=== PATIENT | female | born 1965 | race Caucasian/White ===

== ENCOUNTER 2018-03-30 08:45 | Emergency (ER) | payer BC, OTHER ==
[~2018-03-30] VITALS: Ht 167.6 cm; Wt 92.2 kg
[2018-03-30 08:45] VITALS: BP 167/77; PULSE 76; RESP 26; TEMP 97.5; O2SAT 97
[~2018-03-30 08:45] MED LIST: Z.0.NO CURRENT MEDS
[2018-03-30] MEDS ORDERED: AMBI10TA PO (09:06)
[2018-03-30] MEDS ORDERED: LOVA40TA PO (09:06)
[2018-03-30] MEDS ORDERED: METF500T PO (09:06)
[2018-03-30] MEDS ORDERED: MIRT30TA PO (09:06)
--- NOTE | 2018-03-30 09:06 | PD ---
HPI Chief Complaint: Respiratory Symptoms Time Seen by Provider: 09:06 Travel History International Travel<30 days: No Contact w/Intl Traveler<30days: No Traveled to known affect area: No History of Present Illness HPI 52-year-old female came to the emergency room with history of cough for past 1 week. Patient is a heavy smoker. She says that she went to see her primary care who was gave her a prescription for Levaquin and prednisone for 5 days. Today's the last day. However patient says that for past 4-5 days she is also been feeling like she is in a fog. Her is here with her and says that she wakes up in the middle of the night coughing where she is unable to catch her breath. Patient has a nebulizer at home and she uses it 1-2 times a day. She usually smokes 1-1 and half packs a day. But for past 4-5 days she has been smoking 4 cigarettes a day. No history of chest pain, no history of headache. No history of unilateral weakness or speech issues. Vital signs are stable. She is answering questions appropriately. Patient is a diabetic and her bedside blood sugar was 82. No history of fever or chills. When she coughs she brings out clear to yellowish color sputum. PFSH Past Medical History Narrative Medical List of her past medical, surgical, social and family history reviewed from the nursing note. Anxiety: Yes Depression: Yes Heart Rhythm Problems: No Cardiac Catheterization: No Cardiovascular Problems: Yes (Cholesterol ) High Cholesterol: Yes Congestive Heart Failure: No Diabetes: Yes Patient Takes Glucophage: No Medical other: Yes (SLEEP ) Influenza Vaccination: No ?: Not Menopausal: Yes Past Surgical History Coronary Artery Bypass Graft: No Gynecologic Surgery: Yes Hysterectomy: Yes Social History Alcohol Use: No Tobacco Use: Yes (1 PPD) Substance Use: No Allergies-Medications (Allergen,Severity, Reaction): Coded Allergies: No Known Allergies (Verified Adverse Reaction, Unknown, 03/30/18) Comments No known drug allergies. Reported Meds & Prescriptions Reported Meds & Active Scripts Active Reported Ambien (Zolpidem Tartrate) 10 Mg Tab 10 Mg PO HS PRN Mirtazapine 30 Mg Tab 30 Mg PO HS Lovastatin 40 Mg Tab 40 Mg PO DAILY Metformin (Metformin HCl) 500 Mg Tab 500 Mg PO BIDPC Narrative Medication List of her home medications reviewed from the nursing note. Review of Systems Except as stated in HPI: all other systems reviewed are Neg Respiratory: Positive: Cough Physical Exam Narrative GENERAL: Awake, alert, mild distress SKIN: Focused skin assessment warm/dry. HEAD: Atraumatic. Normocephalic. EYES: Pupils equal and round. No scleral icterus. No injection or drainage. ENT: No nasal bleeding or discharge. Mucous membranes pink and moist. NECK: Trachea midline. No JVD. CARDIOVASCULAR: Regular rate and rhythm. No murmur appreciated. RESPIRATORY: No accessory muscle use. Clear to auscultation. Breath sounds equal bilaterally. GASTROINTESTINAL: Abdomen soft, non-tender, nondistended. Hepatic and splenic margins not palpable. MUSCULOSKELETAL: No obvious deformities. No clubbing. No cyanosis. No edema. NEUROLOGICAL: Awake and alert. No obvious cranial nerve deficits. Motor grossly within normal limits. Normal speech. PSYCHIATRIC: Appropriate mood and affect; insight and judgment normal. Data Data Last Documented VS Vital Signs Date Time Temp Pulse Resp B/P (MAP) Pulse Ox O2 Delivery O2 Flow Rate FiO2 03/30/18 10:57 68 18 132/78 (96) 98 Nasal Cannula 2.00 03/30/18 08:45 97.5 Orders Orders Complete Blood Count With Diff (03/30/18 09:15) Comprehensive Metabolic Panel (03/30/18 09:15) B-Type Natriuretic Peptide (03/30/18 09:15) Prothrombin Time / Inr (Pt) (03/30/18 09:15) Magnesium (Mg) (03/30/18 09:15) Troponin I (03/30/18 09:15) Urinalysis - C+S If Indicated (03/30/18 09:15) Iv Access Insert/Monitor (03/30/18 09:15) Electrocardiogram (03/30/18 09:15) Ecg Monitoring (03/30/18 09:15) Oximetry (03/30/18 09:15) Oxygen Administration (03/30/18 09:15) Chest, Pa & Lat (03/30/18 09:15) Sodium Chloride 0.9% Flush (Ns Flush) (03/30/18 09:15) I-Stat Profile (03/30/18 09:30) Ed Discharge Order (03/30/18 12:00) Labs Laboratory Tests Test 03/30/18 09:30 03/30/18 10:55 White Blood Count 14.0 TH/MM3 Red Blood Count 4.81 MIL/MM3 Hemoglobin 14.5 GM/DL Bedside Hemoglobin G/DL Hematocrit 42.7 % Bedside Hematocrit % Mean Corpuscular Volume 88.8 FL Mean Corpuscular Hemoglobin 30.1 PG Mean Corpuscular Hemoglobin Concent 33.9 % Red Cell Distribution Width 14.3 % Platelet Count 413 TH/MM3 Mean Platelet Volume 7.2 FL Neutrophils (%) (Auto) 64.1 % Lymphocytes (%) (Auto) 28.4 % Monocytes (%) (Auto) 4.9 % Eosinophils (%) (Auto) 1.2 % Basophils (%) (Auto) 1.4 % Neutrophils # (Auto) 8.9 TH/MM3 Lymphocytes # (Auto) 4.0 TH/MM3 Monocytes # (Auto) 0.7 TH/MM3 Eosinophils # (Auto) 0.2 TH/MM3 Basophils # (Auto) 0.2 TH/MM3 CBC Comment DIFF FINAL Differential Comment Prothrombin Time 9.9 SEC Prothromb Time International Ratio 1.0 RATIO Bedside Sodium 142 MMOL/L Blood Urea Nitrogen 22 MG/DL Creatinine 0.89 MG/DL Random Glucose 88 MG/DL Total Protein 7.6 GM/DL Albumin 3.8 GM/DL Calcium Level 9.2 MG/DL Magnesium Level 2.5 MG/DL Alkaline Phosphatase 62 U/L Aspartate Amino Transf (AST/SGOT) 14 U/L Alanine Aminotransferase (ALT/SGPT) 29 U/L Total Bilirubin 0.4 MG/DL Sodium Level 139 MEQ/L Potassium Level 3.9 MEQ/L Chloride Level 102 MEQ/L Carbon Dioxide Level 26.8 MEQ/L Bedside Potassium 3.5 MMOL/L Bedside Chloride 109 MMOL/L Anion Gap 10 MEQ/L Bedside Blood Urea Nitrogen MG/DL Bedside Creatinine MG/DL Estimat Glomerular Filtration Rate 67 ML/MIN Bedside Glucose MG/DL Troponin I LESS THAN 0.02 NG/ML B-Type Natriuretic Peptide LESS THAN 2 PG/ML Urine Collection Type VOIDED Urine Color STRAW Urine Turbidity CLEAR Urine pH 6.0 Urine Specific [place] 1.015 Urine Protein NEG mg/dL Urine Glucose (UA) NEG mg/dL Urine Ketones NEG mg/dL Urine Occult Blood NEG Urine Nitrite NEG Urine Bilirubin NEG Urine Urobilinogen 0.2 MG/DL Urine Leukocyte Esterase NEG Urine Squamous Epithelial Cells 0-2 /hpf Microscopic Urinalysis Comment CULT NOT INDICATED MDM Medical Decision Making Medical Screen Exam Complete: Yes Emergency Medical Condition: Yes Medical Record Reviewed: Yes Interpretation(s) Twelve-lead EKG was reviewed by me. Normal sinus rhythm, normal axis, nonspecific ST-T wave changes. Heart rate of 71 bpm Differential Diagnosis Bronchitis, pneumonia, congestive heart failure Narrative Course 12:06 PM blood test results are back and within normal limit including cardiac enzymes. Chest x-ray was read by the radiologist as is increasing lung markings. Given the history of heavy smoking I have explained to the patient that these could be from bronchitis. Patient does have leukocytosis which in my opinion in the absence of fever is probably from recent use of prednisone. I went back and reassessed the patient and she says she feels much better at this point. I ambulated the patient around the department and got repeat vital signs including sats and they remain stable. I am comfortable discharging her home. She understands my verbal instructions and will get written instructions. I have heavily emphasized on the fact that she needs to quit smoking and she seems to understand this. Procedures EKG Prior to Arrival: No Diagnosis Primary Impression: Bronchitis Additional Impression: Needs smoking cessation education Referrals: Primary Care Physician 2 days Additional Instructions: Return to the ER if condition worsens any other new concerns. Use your inhaler 2 puffs every 4-6 hours. You should strongly consider quitting smoking. Follow -up with your primary care next couple days. Med/Other Pt SpecificInfo: No Change to Meds Disposition: 01 DISCHARGE HOME Condition: Stable Buster Hickman MD Mar 30, 2018 09:06
[2018-03-30] MEDS ORDERED: SODIUM CHLORIDE 0.9% FLUSH 10 ML FLUSH IVF PRN (09:15)
[2018-03-30 09:24] VITALS: BP 139/70; PULSE 73; RESP 16; O2SAT 98
[2018-03-30 09:32] VITALS: RESP 18; O2SAT 96
[2018-03-30 09:36] LABS: AUTOMATED NEUTROPHIL # 8.9 TH/MM3 (1.8-7.7); BASOPHIL # 0.2 TH/MM3 (0-0.2); BASOPHIL % 1.4 % (0.0-2.0); EOSINOPHIL # 0.2 TH/MM3 (0-0.4); EOSINOPHIL % 1.2 % (0.0-4.0); HEMATOCRIT 42.7 % (35.0-46.0); HEMOGLOBIN 14.5 GM/DL (11.6-15.3); LYMPH % 28.4 % (9.0-44.0); MEAN CELL VOLUME 88.8 FL (80.0-100.0); MEAN CORPUSCULAR HEMOGLOBIN 30.1 PG (27.0-34.0); MEAN CORPUSCULAR HGB CONC 33.9 % (32.0-36.0); MEAN PLATELET VOLUME 7.2 FL (7.0-11.0); MONO % 4.9 % (0.0-8.0); MONOCYTE # 0.7 TH/MM3 (0-0.9); NEUT % 64.1 % (16.0-70.0); PLATELET COUNT 413 TH/MM3 (150-450); RED BLOOD COUNT 4.81 MIL/MM3 (4.00-5.30); RED CELL DISTRIBUTION WIDTH 14.3 % (11.6-17.2)
[2018-03-30 09:46] LABS: PROTHROMBIN TIME - PATIENT 9.9 SEC (9.8-11.6)
[2018-03-30 10:00] LABS: CALCIUM 9.2 MG/DL (8.5-10.1)
[2018-03-30 10:01] LABS: ALBUMIN 3.8 GM/DL (3.4-5.0); BICARBONATE 26.8 MEQ/L (21.0-32.0); BLOOD UREA NITROGEN 22 MG/DL (7-18); GLUCOSE,RANDOM 88 MG/DL (74-106); MAGNESIUM 2.5 MG/DL (1.5-2.5)
[2018-03-30 10:04] LABS: ALT (GPT) 29 U/L (10-53); CREATININE 0.89 MG/DL (0.50-1.00); GLOMERULAR FILTRATION RATE 67 ML/MIN (>89)
[2018-03-30 10:05] LABS: TOTAL BILIRUBIN ADULT 0.4 MG/DL (0.2-1.0); TOTAL PROTEIN 7.6 GM/DL (6.4-8.2)
[2018-03-30 10:07] LABS: ALKALINE PHOSPHATASE 62 U/L (45-117)
[2018-03-30 10:08] LABS: AST (GOT) 14 U/L (15-37)
[2018-03-30 10:09] LABS: TROPONIN I LESS THAN 0.02 NG/ML (0.02-0.05)
--- NOTE | 2018-03-30 10:13 | RADRPT ---
EXAM DATE: 03/30/2018 10:09 AM EDT AGE/SEX: 52 years / Female INDICATIONS: Short of Breath CLINICAL DATA: This is the patient's initial encounter. Patient reports that signs and symptoms have been present for 2 days and indicates a pain score of 0/10. MEDICAL/SURGICAL HISTORY: Diabetes mellitus type II. None. COMPARISON: POI, XR CHEST PA AND LAT, 03/26/2018. . FINDINGS: The heart is enlarged. Mild interstitial prominence is evident. There is no pleural effusion or alveo lar consolidation. The portion of the bony skeleton visualized is unremarkable. CONCLUSION: Mild cardiomegaly with minimal interstitial prominence. Etiologies would include both cardiac and non cardiac sources. Findings have progressed from 03/26/2018. Acute [place] could give a similar appearance. Electronically signed by: Elvis Duke MD 03/30/2018 10:11 AM EDT
[2018-03-30 10:57] VITALS: BP 132/78; PULSE 68; RESP 18; O2SAT 98
[2018-03-30 11:09] LABS: BILIRUBIN, URINE NEG (NEG); BLOOD, URINE NEG (NEG); GLUCOSE,URINE NEG (NEG); KETONE, URINE NEG (NEG); NITRITE,URINE NEG (NEG); URINE LEUKOCYTE ESTERASE NEG (NEG)
[2018-03-30 11:11] LABS: URINE COLOR STRAW (YELLW/STRAW)
[2018-03-30 11:24] LABS: SQUAMOUS EPITHELIAL CELL URINE 0-2 /hpf (0-5)
[2018-03-30 11:49] LABS: CHLORIDE 102 MEQ/L (98-107); SODIUM (NA) 139 MEQ/L (136-145)
--- NOTE | 2018-03-30 22:38 | EKG ---
Date Performed: 03/30/2018 Time Performed: 09:35:38 PTAGE: 52 years EKG: Sinus rhythm POSSIBLE LEFT ATRIAL ENLARGEMENT BORDERLINE ECG PREVIOUS TRACING : 08/23/2011 18.42 Since the previous tracing, ST/T wave changes are less prom inent DOCTOR: Jose Last Interpretating Date/Time 03/30/2018 22:37:13
== END 2018-03-30 12:13 | disposition home or self-care (01) ==
LOC: PHED 08:45
DX: J40 Bronchitis, not specified as acute or chronic (principal); R94.31 Abnormal electrocardiogram [ECG] [EKG]; E11.9 Type 2 diabetes mellitus without complications; I51.7 Cardiomegaly; F41.8 Other specified anxiety disorders; F17.210 Nicotine dependence, cigarettes, uncomplicated; R06.02 Shortness of breath
CPT/HCPCS: 71046; 80048; 80053; 81001; 83735; 83880; 84484; 85025; 85610; 93005